=== PATIENT | male | born 1980 | race Caucasian/White ===

== ENCOUNTER 2020-05-20 18:41 | Emergency (ER) | payer OTHER ==
[2020-05-20] MEDS ORDERED: NORMAL SALINE 1000 ML 1,000 ML IV PRN (19:23)
--- NOTE | 2020-05-20 19:23 | ER Document Report ---
ED Medical Screen (RME) - General Chief Complaint: Low Back Pain Stated Complaint: LOW BACK PAIN Time Seen by Provider: 05/20/20 19:22 Primary Care Provider: ARBEN ALLEN [Primary Care Provider] - Follow up as needed Notes: This is a 40-year-old male who presents to the emergency room today with bilateral kidney/flank pain which is going on intermittently for a couple of months he is kind had a little bit of nausea generalized not feeling well is gotten worse over the last week or 2 kind of sort of may be could be a kidney stone - Related Data Allergies/Adverse Reactions: No Known Allergies Allergy (Unverified 05/20/20 19:18) Physical Exam - Vital signs Vitals: Temp Pulse Resp BP Pulse Ox 98.4 F 59 L 16 129/85 H 100 05/20/20 18:44 05/20/20 18:44 05/20/20 18:44 05/20/20 18:44 05/20/20 18:44 Course - Vital Signs Vital signs: Temp Pulse Resp BP Pulse Ox 98.4 F 59 L 16 129/85 H 100 05/20/20 18:44 05/20/20 18:44 05/20/20 18:44 05/20/20 18:44 05/20/20 18:44 Doctor's Discharge - Discharge Referrals: ARBEN ALLEN [Primary Care Provider] - Follow up as needed
[2020-05-20 19:58] LABS: ABSOLUTE BASOPHILS # (AUTO) 0.1 10^3/uL (0.0-0.2); ABSOLUTE EOSINOPHILS # (AUTO) 0.4 10^3/uL (0.0-0.6); ABSOLUTE LYMPHOCYTES (AUTO) 2.1 10^3/uL (0.5-4.7); ABSOLUTE MONOCYTES (AUTO) 0.7 10^3/uL (0.1-1.4); ABSOLUTE NEUT (AUTO) 4.5 10^3/uL (1.7-8.2); BASOPHILS % (AUTO) 0.9 % (0-2); EOSINOPHILS % (AUTO) 4.8 % (0-6); HEMATOCRIT 45.7 % (37.9-51.0); HEMOGLOBIN 15.9 g/dL (13.5-17.0); LYMPHOCYTES % (AUTO) 27.4 % (13-45); MEAN CORPUSCULAR HGB CONC 34.7 g/dL (32.0-36.0); MEAN CORPUSCULAR VOLUME 86 fl (80-97); MONOCYTES % (AUTO) 8.9 % (3-13); PLATELET COUNT 269 10^3/uL (150-450); RED CELL DISTRIBUTION WIDTH 13.3 % (11.5-14.0); TOTAL CELLS COUNTED % (AUTO) 100 %; WHITE BLOOD COUNT 7.8 10^3/uL (4.0-10.5)
[2020-05-20 20:02] LABS: APPEARANCE,URINE CLEAR; BILIRUBIN,URINE NEGATIVE (NEGATIVE); COLOR,URINE YELLOW; GLUCOSE, URINE NEGATIVE (NEGATIVE); KETONES,URINE NEGATIVE (NEGATIVE); LEUKOCYTE ESTERASE,URINE NEGATIVE (NEGATIVE); NITRITE,URINE NEGATIVE (NEGATIVE); PROTEIN,URINE NEGATIVE (NEGATIVE); UROBILINOGEN,URINE NEGATIVE mg/dL (<2.0)
[2020-05-20 20:15] LABS: ALBUMIN 4.3 g/dL (3.5-5.0); ALKALINE PHOSPHATASE 59 U/L (38-126); ANION GAP 6 (5-19); ASPARTATE AMINO TRANSFERASE 23 U/L (17-59); BILIRUBIN,TOTAL 0.6 mg/dL (0.2-1.3); BLOOD UREA NITROGEN 18 mg/dL (7-20); CALCIUM 9.3 mg/dL (8.4-10.2); CARBON DIOXIDE 27 mmol/L (22-30); CHLORIDE 102 mmol/L (98-107); GLUCOSE 94 mg/dL (75-110); POTASSIUM 4.3 mmol/L (3.6-5.0); TOTAL PROTEIN 7.1 g/dL (6.3-8.2)
--- NOTE | 2020-05-20 20:16 | RADIOLOGY REPORT (SQ) ---
CT ABDOMEN PELVIS WITHOUT IV CONTRAST HISTORY: Abdominal pain. COMPARISON: None. TECHNIQUE: CT scan of the abdomen and pelvis was performed without IV contrast. This exam was performed according to our departmental dose-optimization program, which includes automated exposure control, adjustment of the mA and/or kV according to patient size and/or use of iterative reconstruction technique. FINDINGS: The lung bases are clear. No pleural or pericardial effusions. There is no hiatal hernia. The liver, spleen, pancreas, gallbladder, adrenal glands, and kidneys are unremarkable. No urinary stones are seen. The pelvic organs are also unremarkable. The stomach and duodenum are unremarkable. No small bowel obstruction. The appendix is normal. No evidence of acute diverticulitis. No adenopathy, free fluid, or free air is identified. The aorta is normal caliber. No acute bony findings are seen. There is no pathologic body wall hernia. IMPRESSION: No acute abdominal or pelvic findings.
[2020-05-20] MEDS ORDERED: KETOROLAC TROMETHAMINE INJ/PF 30 MG/1 ML SDV IV ONE (22:08)
[2020-05-20] MEDS ORDERED: CYCLOBENZAPRINE HCL 10 MG TABLET PO ONE (22:08)
--- NOTE | 2020-05-20 22:15 | ER Document Report ---
ED General - General Chief Complaint: Flank Pain Stated Complaint: LOW BACK PAIN Time Seen by Provider: 05/20/20 19:22 Primary Care Provider: ARBEN ALLEN [NO LOCAL MD] - Follow up as needed - HPI Notes: Patient is a 40-year-old male with a history of low back pain who presents to the emergency department for evaluation of pain what he believes to be his "kidneys." Is been ongoing for the last couple months, but worse over the last several weeks. He states today got significant. He actually has an appointment to have this evaluated at the [facility] next week. He denies any bowel or bladder incontinence, no saddle anesthesia, no focal numbness or weakness. He states that sometimes he feels like he has some trouble urinating. He states that the pain is a soreness. Is worse in the morning, also worse with "bouncing up and down." Nothing seems to make it better. - Related Data Allergies/Adverse Reactions: No Known Allergies Allergy (Unverified 05/20/20 19:18) Home Medications: fluoxetine Past Medical History - General Information source: Patient - Social History Smoking Status: Current Some Day Smoker Chew tobacco use (# tins/day): No Frequency of alcohol use: Occasional Drug Abuse: None Family History: Reviewed & Not Pertinent Patient has homicidal ideation: No Psychiatric Medical History: Reports: Hx Anxiety, Hx Depression, Hx Post Traumatic Stress Disorder Past Surgical History: Reports: Hx Orthopedic Surgery - Shoulder surgery Review of Systems - Review of Systems Genitourinary: See HPI Musculoskeletal: See HPI -: Yes All other systems reviewed and negative Physical Exam - Vital signs Vitals: Temp Pulse Resp BP Pulse Ox 98.4 F 59 L 16 129/85 H 100 05/20/20 18:44 05/20/20 18:44 05/20/20 18:44 05/20/20 18:44 05/20/20 18:44 - Notes Notes: Vital signs reviewed, please refer to chart. Head is normocephalic, atraumatic. Pupils equal round, reactive to light. Neck is supple without meningismus. Heart is regular rate and rhythm. Lungs are clear to auscultation bilaterally. Abdomen is soft, nontender, normoactive bowel sounds throughout. No CVA tenderness noted. Examination of the spine yields no midline tenderness or step-off. He has some mild paraspinal musculature tenderness noted at approximately L2-L3, around the insertion of the lumbricals, bilaterally. Nega tive straight leg raise bilaterally. Strength is +5/5 bilateral lower extremities. Patellar and Achilles reflexes are symmetrical. Sensation is intact to the lower extremities. Skin is warm and dry. Course - Re-evaluation Re-evalutation: 05/20/20 22:10 Patient presents to the emergency department for evaluation. Laboratory in vestigations and imaging was ordered through triage. Labs and imaging were unremarkable. I do expect this is musculoskeletal pain. It is reproducible with palpation. He is not showing me emergency red flag symptoms at this time. He was given Toradol and Flexeril here. I will send him home with a prescription for Flexeril and close follow-up. He is to return to the ED with worsening or new concerning symptoms of any sort. - Vital Signs Vital signs: Temp Pulse Resp BP Pulse Ox 98.4 F 51 L 17 122/76 98 05/20/20 22:46 05/20/20 22:46 05/20/20 22:46 05/20/20 22:46 05/20/20 22:46 - Laboratory Result Diagrams: 05/20/20 19:42 05/20/20 19:42 Laboratory results interpreted by me: 05/20/20 19:42 Sodium 135.3 L - Diagnostic Test Radiology reviewed: Reports reviewed Radiology results interpreted by me: 05/20/20 22:11 Abdomen/Pelvis CT 05/20/20 19:27 IMPRESSION: No acute abdominal or pelvic findings. Discharge - Discharge Clinical Impression: Musculoskeletal back pain Condition: Stable Disposition: HOME, SELF-CARE Instructions: Low Back Pain ([facility]) Additional Instructions: Moist heat to the painful area. Gentle stretching. Discussed possible physical therapy when you follow-up with primary care next week. Take muscle relaxers and anti-inflammatories as directed. Please watch for dizziness and drowsiness with the muscle relaxers. If you develop worsening or new concerning symptoms of any sort, please return immediately to the emergency department for evalu ation. Prescriptions: Cyclobenzaprine HCl [Flexeril 10 mg Tablet] 10 mg PO TIDP PRN #12 tablet PRN Reason: For Pain Scale 4-5 Naproxen [Naprosyn] 500 mg PO BID #20 tablet Referrals: LOCAL,NO [NO LOCAL MD] - Follow up as needed
[2020-05-20 22:54] VITALS: BP 122/76
== END 2020-05-20 22:54 | disposition home or self-care (01) ==
LOC: ER 18:41
DX: M54.5 Low back pain (principal); R10.9 Unspecified abdominal pain; F17.200 Nicotine dependence, unspecified, uncomplicated; Z79.899 Other long term (current) drug therapy
CPT/HCPCS: 99284; 96361; 96374; 36415; 85025; 80053; 81001; 74176; J1885; J7030